=== PATIENT | male | born 1955 | race Caucasian/White ===

== ENCOUNTER → 2020-08-12 | Outpatient (CLI) | payer BC ==
[~2020-08-12] MED LIST: ASPI81TA45 PO; DICL100G58 TP; EMPA25TA PO; EZET10TA70 PO; GLIP5TAB10 PO; LISI-170 PO; METF500T27 PO; PREG150C PO; ROSU5TAB PO; SITA100T PO; TAMS-11 PO; TURM538C PO
[2020-08-12 09:04] LABS: MICROSCOPIC NOT IND
[2020-08-12 09:06] LABS: BASOPHILS % (AUTO) 1 % (0-1); EOSINOPHILS % (AUTO) 1 % (1-7); LYMPHOCYTES % (AUTO) 25 % (22-44); MEAN CORPUSCULAR HEMOGLOBIN 30.3 pg (27.5-34.5); MEAN PLATELET VOLUME 8.1 fL (7.4-10.4); MONOCYTES % (AUTO) 10 % (2-9); NEUTROPHILS % (AUTO) 63 % (42-75); PLATELET COUNT 234 x10^3/uL (130-400); RED BLOOD COUNT 5.33 x10^6/uL (4.38-5.82); RED CELL DISTRIBUTION WIDTH 14.2 % (9.4-14.8)
[2020-08-12 09:17] LABS: ANION GAP 6 mmol/L (5-15); CALCIUM 10.1 mg/dL (8.5-10.1); CHLORIDE 104 mmol/L (98-107)
[2020-08-12 09:19] LABS: INTERNATIONAL NORMALIZED RATIO 0.98 (0.93-1.1); PROTHROMBIN TIME 10.5 Seconds (9.6-11.5)
[2020-08-12 09:22] LABS: ALANINE AMINOTRANSFERASE 30 U/L (12-78); ALKALINE PHOSPHATASE 57 U/L (45-117); BILIRUBIN,TOTAL 0.4 mg/dL (0.2-1.0); CREATININE 1.09 mg/dL (0.7-1.3); TOTAL PROTEIN 7.5 g/dL (6.4-8.2)
== END | disposition home or self-care (01) ==
LOC: STAR 07:23
PROVIDERS: ATTEND Neurological Surgery
DX: Z01.810 Encounter for preprocedural cardiovascular examination (principal); Z01.811 Encounter for preprocedural respiratory examination; Z01.812 Encounter for preprocedural laboratory examination; R79.1 Abnormal coagulation profile; R94.31 Abnormal electrocardiogram [ECG] [EKG]; R82.90 Unspecified abnormal findings in urine; M51.26 Other intervertebral disc displacement, lumbar region; M48.061 Spinal stenosis, lumbar region without neurogenic claudication; Z20.822 Contact with and (suspected) exposure to COVID-19
CPT/HCPCS: 36415; 71046; 80053; 81003; 85025; 85610; 85730; 93005; U0003; U0005

== ENCOUNTER 2020-08-18 05:22 | Inpatient (IN) | payer BC ==
[~2020-08-18] VITALS: Ht 177.8 cm; Wt 103.0 kg
[2020-08-18 06:07] VITALS: BP 114/79
[2020-08-18] MEDS ORDERED: BUPIVACAINE/PF 0.5% ONE (06:16)
[2020-08-18] MEDS ORDERED: BACITRACIN 50,000 UNIT ONE (06:16)
[2020-08-18] MEDS ORDERED: HYDROCODONE PO (06:16)
[2020-08-18] MEDS ORDERED: CHLORHEXIDINE 15 ML UDC PO ONE (06:30)
[2020-08-18] MEDS ORDERED: LACTATED RINGERS 1,000 ML IV SCH (06:30)
[2020-08-18] MEDS ORDERED: FENTANYL PF 250 MCG/5ML ONE ×2 (06:35→07:56)
[2020-08-18] MEDS ORDERED: MIDAZOLAM 1 MG/ML, 2ML ONE (06:35)
[2020-08-18] MEDS ORDERED: ONDANSETRON 2MG/ML, 2ML IVPush PRN ×2 (07:00→09:00)
[2020-08-18] MEDS ORDERED: ACETAMINOPHEN 325 MG TABLET PO PRN ×2 (07:00→09:00)
[2020-08-18] MEDS ORDERED: OXYcodone 5 MG/5 ML ORAL.SOL UDC PO PRN (07:00)
[2020-08-18] MEDS ORDERED: LABETALOL 5MG/ML, 20ML IV PRN (07:00)
[2020-08-18] MEDS ORDERED: HYDROmorphone 1 MG/ML, 1ML INJ IVPush PRN (07:00)
[2020-08-18] MEDS ORDERED: FENTANYL PF 100 MCG/2ML IV PRN (07:00)
[2020-08-18] MEDS ORDERED: morphine SULFATE 10 MG/ML, 1ML IVPush PRN (07:00)
[2020-08-18] MEDS ORDERED: MEPERIDINE/PF 25MG/0.5ML IVPush PRN (07:00)
[2020-08-18] MEDS ORDERED: hydrALAzine 20 MG/ML, 1ML IV PRN (07:00)
[2020-08-18] MEDS ORDERED: NEOSTIGMINE 1 MG/ML, 10ML ONE (07:49)
[2020-08-18] MEDS ORDERED: CEFAZOLIN 1,000 MG ONE (07:49)
[2020-08-18] MEDS ORDERED: PROPOFOL 50 ML ONE (07:49)
[2020-08-18] MEDS ORDERED: ROCURONIUM 10MG/ML,5ML ONE (07:49)
[2020-08-18] MEDS ORDERED: PROPOFOL 10 MG/ML, 20ML ONE (07:49)
[2020-08-18] MEDS ORDERED: GLYCOPYRROLATE 0.2MG/1ML, 5ML ONE (07:49)
[2020-08-18] MEDS ORDERED: MAGNESIUM HYDROXIDE 8%, 30ML UDC PO PRN (09:00)
[2020-08-18] MEDS ORDERED: TEMPLATE NON-FORMULARY MED. (Rosuvastatin Calcium** (Crestor**) 5 MG) PO SCH (09:00)
[2020-08-18] MEDS ORDERED: DIPHENHYDRAMINE 50 MG/ML, 1ML IVPush PRN (09:00)
[2020-08-18] MEDS ORDERED: LABETALOL 5MG/ML, 20ML IVPush PRN (09:00)
[2020-08-18] MEDS ORDERED: SENNA/DOCUSATE TABLET PO PRN (09:00)
[2020-08-18] MEDS ORDERED: PROMETHAZINE 25 MG/ML, 1ML IM PRN (09:00)
[2020-08-18] MEDS ORDERED: PHARMACY MAY ADJ FOR RENAL FX MC PRN (09:00)
[2020-08-18] MEDS ORDERED: DIPHENHYDRAMINE 50 MG CAPSULE PO PRN (09:00)
[2020-08-18] MEDS ORDERED: BISACODYL 10 MG SUPP PR PRN (09:00)
[2020-08-18] MEDS ORDERED: OXYcodone 5 MG/5 ML ORAL.SOL UDC ONE (09:28)
[2020-08-18] MEDS ORDERED: MEPERIDINE/PF 25MG/ML,1ML ONE (09:29)
[2020-08-18] MEDS: SODIUM CHLORIDE FLUSH 10ML SYR IVF SCH ×2 (11:09→20:36)
[2020-08-18] MEDS: TAMSULOSIN 0.4 MG CAP.ER.24H PO SCH (12:00)
[2020-08-18] MEDS: LISINOPRIL 20 MG TABLET PO SCH (12:00)
[2020-08-18] MEDS: metFORMIN 500 MG TABLET PO SCH ×2 (12:00→23:08)
[2020-08-18] MEDS: TEMPLATE NON-FORMULARY MED. (Empagliflozin (Jardiance) 1 TAB) PO SCH (12:12)
[2020-08-18] MEDS: METHOCARBAMOL 750 MG TABLET PO PRN (12:18)
[2020-08-18] MEDS: OXYcodone 5 MG/5 ML ORAL.SOL UDC PO PRN ×3 (14:46→23:53)
[2020-08-18 15:15] VITALS: BP 124/76
[2020-08-18] MEDS: NS + 20MEQ KCL 1,000 ML IV SCH (16:15)
[2020-08-18] MEDS: CEFAZOLIN PMX 1GM/50ML 50 ML IVPB SCH ×2 (16:15→23:52)
[2020-08-18] MEDS: INSULIN REGULAR 100 UNITS/ML, 3ML VIAL SQ-INSULIN PRN (16:47)
[2020-08-18 18:37] VITALS: BP 119/72
[2020-08-18] MEDS: TEMPLATE NON-FORMULARY MED. (Sitagliptin Phosphate** (Januvia**) 100 MG) PO SCH (20:25)
[2020-08-18] MEDS: EZETIMIBE 10 MG TABLET PO SCH (20:37)
[2020-08-18] MEDS: PREGABALIN 150 MG CAPSULE PO SCH (20:37)
[2020-08-19 00:03] VITALS: BP 112/66
[2020-08-19] MEDS: NS + 20MEQ KCL 1,000 ML IV SCH ×3 (00:56→21:59)
[2020-08-19] MEDS: OXYcodone 5 MG/5 ML ORAL.SOL UDC PO PRN ×4 (03:59→16:55)
[2020-08-19 04:14] VITALS: BP 121/75
[2020-08-19 05:25] LABS: BASOPHILS % (AUTO) 0 % (0-1); EOSINOPHILS % (AUTO) 1 % (1-7); LYMPHOCYTES % (AUTO) 21 % (22-44); MEAN CORPUSCULAR HEMOGLOBIN 30.5 pg (27.5-34.5); MEAN CORPUSCULAR HGB CONC 34.3 g/dL (33.2-36.2); MEAN PLATELET VOLUME 8.4 fL (7.4-10.4); MONOCYTES % (AUTO) 9 % (2-9); NEUTROPHILS % (AUTO) 69 % (42-75); PLATELET COUNT 179 x10^3/uL (130-400); RED BLOOD COUNT 4.55 x10^6/uL (4.38-5.82)
[2020-08-19 05:32] LABS: ANION GAP 4 mmol/L (5-15); CALCIUM 8.3 mg/dL (8.5-10.1); CHLORIDE 105 mmol/L (98-107)
[2020-08-19 05:35] LABS: CREATININE 0.84 mg/dL (0.7-1.3)
[2020-08-19] MEDS: METHOCARBAMOL 750 MG TABLET PO PRN ×2 (05:38→21:54)
[2020-08-19 07:00] VITALS: BP 125/76
[2020-08-19] MEDS: INSULIN REGULAR 100 UNITS/ML, 3ML VIAL SQ-INSULIN PRN ×4 (07:22→22:03)
[2020-08-19] MEDS: CEFAZOLIN PMX 1GM/50ML 50 ML IVPB SCH (07:29)
[2020-08-19] MEDS: TAMSULOSIN 0.4 MG CAP.ER.24H PO SCH (07:30)
[2020-08-19] MEDS: LISINOPRIL 20 MG TABLET PO SCH (07:30)
[2020-08-19] MEDS: metFORMIN 500 MG TABLET PO SCH ×2 (07:30→21:54)
[2020-08-19] MEDS: SODIUM CHLORIDE FLUSH 10ML SYR IVF SCH ×2 (07:38→21:54)
[2020-08-19] MEDS ORDERED: ENOXAPARIN 40 MG/0.4 ML SQ ONE (09:00)
[2020-08-19] MEDS: TEMPLATE NON-FORMULARY MED. (Empagliflozin (Jardiance) 1 TAB) PO SCH (09:12)
[2020-08-19 13:05] VITALS: BP 134/78
[2020-08-19 18:55] VITALS: BP 149/78
[2020-08-19] MEDS: EZETIMIBE 10 MG TABLET PO SCH (21:53)
[2020-08-19] MEDS: PREGABALIN 150 MG CAPSULE PO SCH (21:54)
[2020-08-19] MEDS: HYDROcodone/APAP 10/325 MG TABLET PO PRN (21:56)
[2020-08-19] MEDS: TEMPLATE NON-FORMULARY MED. (Sitagliptin Phosphate** (Januvia**) 100 MG) PO SCH (21:58)
[2020-08-20 01:23] VITALS: BP 138/82
[2020-08-20] MEDS: HYDROcodone/APAP 10/325 MG TABLET PO PRN ×4 (02:46→22:26)
[2020-08-20 05:09] LABS: BASOPHILS % (AUTO) 1 % (0-1); EOSINOPHILS % (AUTO) 1 % (1-7); LYMPHOCYTES % (AUTO) 19 % (22-44); MEAN CORPUSCULAR HEMOGLOBIN 30.8 pg (27.5-34.5); MEAN CORPUSCULAR HGB CONC 34.7 g/dL (33.2-36.2); MEAN PLATELET VOLUME 8.2 fL (7.4-10.4); MONOCYTES % (AUTO) 12 % (2-9); NEUTROPHILS % (AUTO) 69 % (42-75); PLATELET COUNT 184 x10^3/uL (130-400); RED BLOOD COUNT 4.76 x10^6/uL (4.38-5.82); RED CELL DISTRIBUTION WIDTH 14.4 % (9.4-14.8)
[2020-08-20 05:13] LABS: ANION GAP 5 mmol/L (5-15); CHLORIDE 105 mmol/L (98-107); CREATININE 0.68 mg/dL (0.7-1.3)
[2020-08-20] MEDS ORDERED: EPINEPHRINE 1 MG/ML, 1ML ONE (06:16)
[2020-08-20] MEDS ORDERED: BACITRACIN 50,000 UNIT ONE (06:16)
[2020-08-20] MEDS ORDERED: BUPIVACAINE/PF 0.5% ONE (06:16)
[2020-08-20] MEDS ORDERED: BUPIVACAINE 0.25% ONE (06:16)
[2020-08-20 08:18] VITALS: BP 146/80
[2020-08-20] MEDS: metFORMIN 500 MG TABLET PO SCH ×2 (08:27→17:18)
[2020-08-20] MEDS: TEMPLATE NON-FORMULARY MED. (Empagliflozin (Jardiance) 1 TAB) PO SCH (08:28)
[2020-08-20] MEDS: SODIUM CHLORIDE FLUSH 10ML SYR IVF SCH ×2 (08:29→21:03)
[2020-08-20] MEDS: TAMSULOSIN 0.4 MG CAP.ER.24H PO SCH (08:29)
[2020-08-20] MEDS: LISINOPRIL 20 MG TABLET PO SCH (08:29)
[2020-08-20] MEDS: NS + 20MEQ KCL 1,000 ML IV SCH (08:30)
[2020-08-20] MEDS ORDERED: CHLORHEXIDINE 15 ML UDC ONE (10:31)
[2020-08-20] MEDS ORDERED: CHLORHEXIDINE 15 ML UDC PO ONE (11:00)
[2020-08-20] MEDS ORDERED: FENTANYL PF 250 MCG/5ML ONE ×2 (11:50→14:52)
[2020-08-20] MEDS ORDERED: MIDAZOLAM 1 MG/ML, 2ML ONE (11:50)
[2020-08-20] MEDS ORDERED: PROPOFOL 10 MG/ML, 20ML ONE (12:05)
[2020-08-20] MEDS ORDERED: DEXAMETHASONE 4 MG/ML, 1ML ONE (12:05)
[2020-08-20] MEDS ORDERED: ONDANSETRON 2MG/ML, 2ML ONE (12:05)
[2020-08-20] MEDS ORDERED: CEFAZOLIN 1,000 MG ONE (12:05)
[2020-08-20] MEDS ORDERED: BACITRACIN 50,000 UNIT IRRIG ONE (12:49)
[2020-08-20] MEDS ORDERED: EPINEPHRINE 1 MG/ML, 1ML INFIL ONE (12:50)
[2020-08-20] MEDS ORDERED: BUPIVACAINE/PF 0.5% INFIL ONE (12:50)
[2020-08-20] MEDS ORDERED: VANCOMYCIN 1,000 MG IM ONE (12:51)
[2020-08-20] MEDS ORDERED: VANCOMYCIN 1,000 MG ONE (12:53)
[2020-08-20] MEDS ORDERED: HYDROmorphone 1 MG/ML, 1ML INJ ONE (13:12)
[2020-08-20] MEDS ORDERED: FENTANYL PF 100 MCG/2ML ONE (14:52)
[2020-08-20] MEDS ORDERED: FENTANYL PF 100 MCG/2ML EPIDPUSH ONE (15:00)
[2020-08-20] MEDS ORDERED: BUPIVACAINE/PF 0.25% EPIDPUSH ONE (15:00)
[2020-08-20] MEDS ORDERED: MEPERIDINE/PF 25MG/ML,1ML ONE ×2 (16:11→16:30)
[2020-08-20] MEDS ORDERED: HYDROmorphone 1 MG/ML, 1ML INJ IVPush PRN (16:30)
[2020-08-20] MEDS ORDERED: PROMETHAZINE 25 MG/ML, 1ML IVPush PRN (16:30)
[2020-08-20] MEDS ORDERED: MEPERIDINE/PF 25MG/0.5ML IVPush PRN (16:30)
[2020-08-20] MEDS ORDERED: hydrALAzine 20 MG/ML, 1ML IV PRN (16:30)
[2020-08-20] MEDS ORDERED: FENTANYL PF 100 MCG/2ML IV PRN (16:30)
[2020-08-20] MEDS ORDERED: ONDANSETRON 2MG/ML, 2ML IVPush PRN (16:30)
[2020-08-20] MEDS ORDERED: OXYcodone 5 MG/5 ML ORAL.SOL UDC PO PRN (16:30)
[2020-08-20] MEDS ORDERED: LABETALOL 5MG/ML, 20ML IV PRN (16:30)
[2020-08-20 19:21] VITALS: BP 113/68
[2020-08-20] MEDS: EZETIMIBE 10 MG TABLET PO SCH (20:59)
[2020-08-20] MEDS: CEFAZOLIN PMX 1GM/50ML 50 ML IVPB SCH (20:59)
[2020-08-20] MEDS: PREGABALIN 150 MG CAPSULE PO SCH (21:00)
[2020-08-20] MEDS: FAMOTIDINE 10 MG TAB PO SCH (21:00)
[2020-08-20] MEDS: TEMPLATE NON-FORMULARY MED. (Sitagliptin Phosphate** (Januvia**) 100 MG) PO SCH (21:02)
[2020-08-20] MEDS: D5%-0.9% NACL+KCL 20MEQ 1,000 ML IV SCH (21:03)
[2020-08-20] MEDS: INSULIN REGULAR 100 UNITS/ML, 3ML VIAL SQ-INSULIN PRN (21:07)
[2020-08-21 00:26] VITALS: BP 125/79
[2020-08-21] MEDS: OXYcodone 5 MG/5 ML ORAL.SOL UDC PO PRN ×5 (02:38→21:27)
[2020-08-21 04:37] VITALS: BP 109/71
[2020-08-21 04:39] LABS: BASOPHILS % (AUTO) 1 % (0-1); EOSINOPHILS % (AUTO) 1 % (1-7); LYMPHOCYTES % (AUTO) 16 % (22-44); MEAN CORPUSCULAR HEMOGLOBIN 30.7 pg (27.5-34.5); MEAN CORPUSCULAR HGB CONC 34.6 g/dL (33.2-36.2); MONOCYTES % (AUTO) 12 % (2-9); NEUTROPHILS % (AUTO) 71 % (42-75); PLATELET COUNT 176 x10^3/uL (130-400); RED BLOOD COUNT 3.96 x10^6/uL (4.38-5.82); RED CELL DISTRIBUTION WIDTH 13.9 % (9.4-14.8)
[2020-08-21 04:50] LABS: ANION GAP 4 mmol/L (5-15); CALCIUM 8.3 mg/dL (8.5-10.1); CHLORIDE 104 mmol/L (98-107); CREATININE 0.68 mg/dL (0.7-1.3)
[2020-08-21] MEDS: CEFAZOLIN PMX 1GM/50ML 50 ML IVPB SCH ×3 (05:12→21:27)
[2020-08-21] MEDS: D5%-0.9% NACL+KCL 20MEQ 1,000 ML IV SCH ×2 (07:00→13:18)
[2020-08-21] MEDS: INSULIN REGULAR 100 UNITS/ML, 3ML VIAL SQ-INSULIN PRN ×3 (07:14→10:53)
[2020-08-21 07:27] VITALS: BP 128/75
[2020-08-21] MEDS: metFORMIN 500 MG TABLET PO SCH ×2 (08:00→16:24)
[2020-08-21] MEDS: KETOROLAC 30 MG/1 ML IV PRN ×2 (08:01→16:25)
[2020-08-21] MEDS: SODIUM CHLORIDE FLUSH 10ML SYR IVF SCH ×2 (08:01→20:44)
[2020-08-21] MEDS: LISINOPRIL 20 MG TABLET PO SCH (08:01)
[2020-08-21] MEDS: TEMPLATE NON-FORMULARY MED. (Empagliflozin (Jardiance) 1 TAB) PO SCH (08:01)
[2020-08-21] MEDS: TAMSULOSIN 0.4 MG CAP.ER.24H PO SCH (08:02)
[2020-08-21] MEDS: FAMOTIDINE 10 MG TAB PO SCH ×2 (08:02→20:44)
[2020-08-21] MEDS: ENOXAPARIN 30 MG/0.3 ML SQ SCH ×2 (08:08→20:44)
[2020-08-21] MEDS ORDERED: ASPIRIN 81 MG TABLET CHEW PO ONE (09:10)
[2020-08-21] MEDS ORDERED: ASPIRIN 81 MG TABLET CHEW ONE (09:13)
[2020-08-21 09:34] LABS: TROPONIN I < 0.015 ng/mL (0.000-0.045)
[2020-08-21] MEDS: morphine SULFATE 10 MG/ML, 1ML IVPush PRN ×2 (10:00→13:24)
[2020-08-21 14:51] VITALS: BP 102/66
[2020-08-21] MEDS ORDERED: DILTIAZEM 5 MG/ML, 5ML IVPush SCH (15:00)
[2020-08-21] MEDS: METOPROLOL TARTRATE 25 MG TAB PO SCH (15:03)
[2020-08-21] MEDS ORDERED: DILTIAZEM 5 MG/ML, 5ML IVPush PRN (15:30)
[2020-08-21] MEDS ORDERED: OXYcodone IR 5MG TABLET ONE (20:24)
[2020-08-21 20:38] VITALS: BP 97/66
[2020-08-21] MEDS: EZETIMIBE 10 MG TABLET PO SCH (20:44)
[2020-08-21] MEDS: PREGABALIN 150 MG CAPSULE PO SCH (20:44)
[2020-08-21] MEDS: TEMPLATE NON-FORMULARY MED. (Sitagliptin Phosphate** (Januvia**) 100 MG) PO SCH (20:45)
[2020-08-22] VITALS (7 sets, daily range): BP systolic 94–109; BP diastolic 60–73
[2020-08-22] MEDS: KETOROLAC 30 MG/1 ML IV PRN ×3 (01:54→20:39)
[2020-08-22] MEDS: D5%-0.9% NACL+KCL 20MEQ 1,000 ML IV SCH ×2 (02:40→10:58)
[2020-08-22 04:54] LABS: BASOPHILS % (AUTO) 1 % (0-1); EOSINOPHILS % (AUTO) 1 % (1-7); LYMPHOCYTES % (AUTO) 16 % (22-44); MEAN CORPUSCULAR HGB CONC 34.6 g/dL (33.2-36.2); MEAN PLATELET VOLUME 8.8 fL (7.4-10.4); MONOCYTES % (AUTO) 12 % (2-9); NEUTROPHILS % (AUTO) 70 % (42-75); PLATELET COUNT 181 x10^3/uL (130-400); RED BLOOD COUNT 3.77 x10^6/uL (4.38-5.82); RED CELL DISTRIBUTION WIDTH 13.8 % (9.4-14.8)
[2020-08-22] MEDS: METOPROLOL TARTRATE 25 MG TAB PO SCH ×2 (05:18→16:57)
[2020-08-22] MEDS: CEFAZOLIN PMX 1GM/50ML 50 ML IVPB SCH ×2 (05:18→12:59)
[2020-08-22] MEDS: OXYcodone 5 MG/5 ML ORAL.SOL UDC PO PRN ×3 (05:18→14:38)
[2020-08-22] MEDS: INSULIN REGULAR 100 UNITS/ML, 3ML VIAL SQ-INSULIN PRN ×4 (07:38→21:22)
[2020-08-22] MEDS: metFORMIN 500 MG TABLET PO SCH ×2 (08:05→16:57)
[2020-08-22] MEDS: LISINOPRIL 20 MG TABLET PO SCH (08:05)
[2020-08-22] MEDS: TAMSULOSIN 0.4 MG CAP.ER.24H PO SCH (08:05)
[2020-08-22] MEDS: FAMOTIDINE 10 MG TAB PO SCH ×2 (08:05→20:38)
[2020-08-22] MEDS: SODIUM CHLORIDE FLUSH 10ML SYR IVF SCH ×2 (08:06→20:40)
[2020-08-22] MEDS: ENOXAPARIN 30 MG/0.3 ML SQ SCH ×2 (08:06→20:39)
[2020-08-22] MEDS: TEMPLATE NON-FORMULARY MED. (Empagliflozin (Jardiance) 1 TAB) PO SCH (08:06)
[2020-08-22] MEDS: EZETIMIBE 10 MG TABLET PO SCH (20:38)
[2020-08-22] MEDS: PREGABALIN 150 MG CAPSULE PO SCH (20:38)
[2020-08-22] MEDS: TEMPLATE NON-FORMULARY MED. (Sitagliptin Phosphate** (Januvia**) 100 MG) PO SCH (20:40)
[2020-08-23 01:07] VITALS: BP 113/71
[2020-08-23] MEDS: OXYcodone 5 MG/5 ML ORAL.SOL UDC PO PRN ×3 (01:18→10:37)
[2020-08-23 05:23] LABS: BASOPHILS % (AUTO) 1 % (0-1); EOSINOPHILS % (AUTO) 2 % (1-7); LYMPHOCYTES % (AUTO) 26 % (22-44); MEAN CORPUSCULAR HEMOGLOBIN 30.9 pg (27.5-34.5); MEAN PLATELET VOLUME 8.9 fL (7.4-10.4); MONOCYTES % (AUTO) 14 % (2-9); NEUTROPHILS % (AUTO) 57 % (42-75); PLATELET COUNT 211 x10^3/uL (130-400); RED BLOOD COUNT 3.62 x10^6/uL (4.38-5.82); RED CELL DISTRIBUTION WIDTH 13.5 % (9.4-14.8)
[2020-08-23] MEDS: METOPROLOL TARTRATE 25 MG TAB PO SCH (05:30)
[2020-08-23 07:33] VITALS: BP 99/63
[2020-08-23] MEDS ORDERED: METO25TA35 PO (08:52)
[2020-08-23] MEDS ORDERED: OXYC-380 PO (08:52)
[2020-08-23] MEDS ORDERED: METH-640 PO (08:52)
[2020-08-23] MEDS: KETOROLAC 30 MG/1 ML IV PRN (08:57)
[2020-08-23] MEDS: LISINOPRIL 20 MG TABLET PO SCH (08:57)
[2020-08-23] MEDS: metFORMIN 500 MG TABLET PO SCH (08:57)
[2020-08-23] MEDS: TAMSULOSIN 0.4 MG CAP.ER.24H PO SCH (08:57)
[2020-08-23] MEDS: ENOXAPARIN 30 MG/0.3 ML SQ SCH (08:58)
[2020-08-23] MEDS: TEMPLATE NON-FORMULARY MED. (Empagliflozin (Jardiance) 1 TAB) PO SCH (08:58)
[2020-08-23] MEDS: FAMOTIDINE 10 MG TAB PO SCH (08:58)
[2020-08-23] MEDS: SODIUM CHLORIDE FLUSH 10ML SYR IVF SCH (08:59)
[2020-08-23] MEDS ORDERED: MAGNESIUM CITRATE 300ML ORAL SOL PO PRN (09:00)
[2020-08-23] MEDS: BISACODYL 10 MG SUPP PR ONE (09:30)
[2020-08-23] MEDS ORDERED: OXYcodone IR 5MG TABLET ONE (10:24)
[2020-08-23 12:43] VITALS: BP 111/68
[2020-08-23] MEDS: HYDROcodone/APAP 10/325 MG TABLET PO PRN (14:12)
== END 2020-08-23 15:00 | disposition home or self-care (01) | DRG 454 ==
LOC: ORIP 05:22 → 4NE 10:21 → 5SO 08-21 11:53 → DCLOUNGE 08-23 14:45
PROVIDERS: ADMIT Neurological Surgery; ATTEND Hospitalist
PROC: 0SG00A0 Fusion of Lumbar Vertebral Joint with Interbody Fusion Device, Anterior Approach, Anterior Column, Open Approach (ICD-10-PCS; 2020-08-18)
PROC: 4A11X4G Monitoring of Peripheral Nervous Electrical Activity, Intraoperative, External Approach (ICD-10-PCS; 2020-08-18)
PROC: 0SB20ZZ Excision of Lumbar Vertebral Disc, Open Approach (ICD-10-PCS; 2020-08-18)
PROC: 0SG1071 Fusion of 2 or more Lumbar Vertebral Joints with Autologous Tissue Substitute, Posterior Approach, Posterior Column, Open Approach (ICD-10-PCS; 2020-08-20)
PROC: 01NB0ZZ Release Lumbar Nerve, Open Approach (ICD-10-PCS; 2020-08-20)
PROC: 0SB20ZZ Excision of Lumbar Vertebral Disc, Open Approach (ICD-10-PCS; 2020-08-20)
PROC: 4A1134G Monitoring of Peripheral Nervous Electrical Activity, Intraoperative, Percutaneous Approach (ICD-10-PCS; 2020-08-20)
PROC: 0SG00AJ Fusion of Lumbar Vertebral Joint with Interbody Fusion Device, Posterior Approach, Anterior Column, Open Approach (ICD-10-PCS; principal; 2020-08-20 11:30)
DX: M48.061 Spinal stenosis, lumbar region without neurogenic claudication (principal); I48.92 Unspecified atrial flutter; M43.16 Spondylolisthesis, lumbar region; E11.9 Type 2 diabetes mellitus without complications; I10 Essential (primary) hypertension; I48.91 Unspecified atrial fibrillation; M21.371 Foot drop, right foot; M47.26 Other spondylosis with radiculopathy, lumbar region; M51.16 Intervertebral disc disorders with radiculopathy, lumbar region; N40.0 Benign prostatic hyperplasia without lower urinary tract symptoms; Z79.899 Other long term (current) drug therapy
CPT/HCPCS: 36415; 72100; C8929; S0020; 72131; 80048; 82962; 84484; 85025; 86850; 86900; 93005; 95938; 95941; C1713; G0378; J0171; J0690; J1100; J1170; J1650; J1815; J1885; J2175; J2250; J2405; J2704; J2710; J3010; J3370; J3480; Q9957; C1760; C1763; C1769; C1889; J2270; J7120